=== PATIENT | male | born 1960 | race Caucasian/White ===

== ENCOUNTER 2024-09-08 13:33 | Emergency (ER) | payer OTHER, SELFPAY ==
[2024-09-08 13:35] VITALS: BP 146/81; PULSE 64; RESP 19; TEMP 36.8; O2SAT 99; BMI 23.6
--- NOTE | 2024-09-08 13:49 | XR_ITS ---
Examination: CT abdomen and pelvis without contrast. Coronal 3-D reconstructions. Sagittal 2-D reconstructions. Date and time of exam:September 08, 2024 1449 hours COMPARISON: January 31, 2021 INDICATIONS: Onset severe abdominal pain and diarrhea beginning 4 days ago CTDI: vol (mGy): 6.43 DLP: (mGycm): 368 Technique: Axial images of the abdomen have been obtained, 3 mm slice thickness Intravenous contrast material has not been administered. Low dose protocols were performed. One or more of the following dose reduction techniques were used; automated exposure control, adjustment of the mA and/or KV according to patient size, use of iterative reconstruction technique. Findings: No focal liver or splenic lesions Absent gallbladder No pancreatic or adrenal mass 25 mm left renal cyst No renal or ureteral calculi Aorta normal size No bowel obstruction Normal appendix No diverticulitis A few loops of fluid distended small bowel in the lower abdomen and pelvis Transverse prostate dimension 3.7 cm Urinary bladder intact Advanced disc narrowing L5-S1 IMPRESSION: No renal or ureteral calculi Normal appendix A few loops of fluid distended small bowel in the lower abdomen, differential would include ileus, early small bowel obstruction not excluded, recommend 3 way abdominal series follow-up
--- NOTE | 2024-09-08 13:51 | PD.EDRME ---
Rapid Medical Screening Exam RME Arrival date/time: 09/08/24 13:33 64-year-old male presents emergency department complaints of abdominal pain and diarrhea Chief Complaint: Nausea/Vomiting/Diarrhea Time Seen by Provider: 09/08/24 13:49 Vital signs: Vital Signs Temperature 98.2 F 09/08/24 13:35 Pulse Rate 64 09/08/24 13:35 Respiratory Rate 19 09/08/24 13:35 Blood Pressure 146/81 H 09/08/24 13:35 Pulse Oximetry (%) 99 09/08/24 13:35 Oxygen Delivery Method Room Air 09/08/24 13:35
[2024-09-08 14:06] LABS: Basophils # (Auto) 0.1 Thou/mm3 (0.0-0.2); Basophils % (Auto) 1 % (0-2.5); Eosinophils # (Auto) 0.1 Thou/mm3 (0.0-0.5); Eosinophils % (Auto) 1 % (0-10); Hematocrit 47.7 % (41.0-53.0); Hemoglobin 16.1 g/dL (13.5-16.0); Immature Granulocytes % (Auto) 0 % (0-0); Immature Granulocytes Auto 0.03 Thou/mm3 (0.00-0.00); Lymphocytes # (Auto) 1.6 Thou/mm3 (1.0-4.8); Lymphocytes % (Auto) 18 % (10-50); Mean Corpuscular HGB Conc 33.8 g/dl (31.0-37.0); Mean Corpuscular Volume 89 fL (80-100); Monocytes # (Auto) 0.7 Thou/mm3 (0.0-0.8); Monocytes % (Auto) 8 % (0-12); Neutrophils # (Auto) 6.3 Thou/mm3 (1.8-7.7); Neutrophils % (Auto) 72 % (37-80); Nucleated Red Blood Cell % 0 /100 WBC (0); Platelet Count 206 Thou/mm3 (140-440); RDW Standard Deviation 43.4 fL (35.1-43.9); Red Blood Count 5.37 Miln/mm3 (4.50-5.90); White Blood Count 8.8 Thou/mm3 (3.8-10.6)
[2024-09-08 14:22] LABS: Collection Type, Urine Clean Catch
[2024-09-08 14:30] LABS: Alanine Aminotransferase 13 U/L (10-49); Albumin, Serum 4.8 gm/dL (3.4-4.8); Alkaline Phosphatase 85 U/L (46-116); Anion Gap 7 (7-16); Aspartate Amino Transferase 10 U/L (0-34); BUN/Creatinine Ratio 15 Ratio (12-20); Bilirubin,Total 0.7 mg/dL (0.3-1.2); Blood Urea Nitrogen 16 mg/dL (9-23); Calcium 9.8 mg/dL (8.3-10.6); Calcium (Corrected) 9.8 mg/dL (8.5-10.1); Carbon Dioxide 23.5 mMol/L (20.0-31.0); Chloride 107 mMol/L (98-107); Creatinine (Component) 1.1 mg/dL (0.6-1.3); Globulin 2.4 gm/dL (2.3-3.5); Glucose 113 mg/dL (74-106); Lipase 29 U/L (12-53); Osmolality,Calculated 276 (275-295); Potassium 3.9 mMol/L (3.4-5.1); Sodium 137 mMol/L (136-145); Total Protein 7.2 gm/dL (5.7-8.2); eGFR > 60 See Note
[2024-09-08 14:43] LABS: Bacteria,Urine Rare; Bilirubin,Urine Negative (Negative); Blood,Urine 1+ (Negative); Clarity,Urine Clear (Clear/Hazy); Color,Urine Yellow (Lt Yel-Yel); Culture Indicated,Urine Not Indicated; Glucose, Urine Negative (Negative); Hyaline Casts,Urine < 1 /hpf (0-1); Ketones,Urine Negative (Negative); Leukocyte Esterase,Urine Negative (Negative); Nitrite,Urine Negative (Negative); PH,Urine 5.5 (5.0-7.0); Protein,Urine 1+ (Neg - Trace); RBC,Urine 1 /hpf (0-3); Specific Gravity,Urine 1.033 (1.001-1.035); Squamous Epithelial Cell,Urine < 1 /hpf (0-5); Urobilinogen,Urine Negative mg/dL (0.0-1.0); WBC,Urine 1 /hpf (0-5)
[2024-09-08 15:23] LABS: Magnesium 2.1 mg/dL (1.6-2.6)
--- NOTE | 2024-09-08 16:08 | PD.EDNV ---
Nausea/Vomit./Diarrhea-RME/HPI General Chief complaint: Nausea/Vomiting/Diarrhea Stated complaint: Diarrhea Time Seen by Provider: 09/08/24 13:49 Source: patient Arrival date/time: 09/08/24 13:33 This is a 64-year-old male who presented to the emergency department with complaints of generalized abdominal pain associated with mild nausea and vomiting x 1 day. He does report that yesterday for lunch she had a shrimp burrito and reports that his symptoms started since then. Reports he also started with diarrhea today prompting his ED visit today. Mode of arrival: ambulatory RME / HPI RME / HPI Narrative: 09/08/24 13:33 64-year-old male presents emergency department complaints of abdominal pain and diarrhea Related Data Home Medications ?Medication ?Instructions ?Recorded ?Confirmed atorvastatin 40 mg tablet 40 mg PO QDAY 04/08/23 04/08/23 trazodone 100 mg tablet 100 mg PO QPM 04/08/23 04/08/23 Previous Rx's ?Medication ?Instructions ?Recorded dicyclomine 10 mg capsule 10 mg PO QID PRN abdominal pain 09/08/24 #14 caps Allergies Allergy/AdvReac Type Severity Reaction Status Date / Time meperidine Allergy Unknown Nausea Verified 04/09/23 15:19 Review of Systems Review of Systems Systems Reviewed: All systems reviewed, normal except as documented Narrative Review of Systems: Gen: No fever, no chills, no weight loss EYES: No discharge, no visual changes, no pain HEENT: No ear pain, no congestion, no sore throat PULM: No shortness of breath, no cough, no congestion CV: No chest pain, no dyspnea on exertion, no palpitations GI: No nausea, + vomiting, + diarrhea, + pain, no constipation : No frequency, no urgency,? no dysuria Musc/skel: No joint pain, no back pain Skin: No rash? Psyc: No hallucinations, no depression Heme/Lymph: No easy bleeding or bruising tendencies Neuro: No weakness, no headache ED Exam Narrative Physical exam: General: Sittiing in Exam table in no acute distress, answering questions appropriately HENT: normocephalic, atraumatic, EOMI, PERRLA, moist mucous membranes Chest: chest wall is nontender Cardiac: regular rate and rhythm, normal S1 and S2, no murmurs, rubs, or gallops, capillary refill ?2 seconds Pulmonary: clear to auscultation bilaterally, no wheezing, crackles, or rhonchi Abdominal: active bowel sounds, soft, nontender, nondistended Neuro: A&OX3, CN II-XII intact, sensation grossly intact bilaterally in UE and LE. Skin: no rashes, no ecchymosis Ext: no lower extremity edema Course Quality Measures none Orders Category Date Time Status CT abdomen pelvis wo con Stat Exams 09/08/24 13:49 Completed CBC Stat Lab 09/08/24 13:54 Completed Comprehensive Metabolic Panel Stat Lab 09/08/24 13:54 Completed Lipase Stat Lab 09/08/24 13:54 Completed Magnesium Stat Lab 09/08/24 13:54 Completed UA, C/S IF [Urinalysis, C/S if Indicated] Stat Lab 09/08/24 14:15 Completed Vital Signs Vital signs: Vital Signs Temperature 98.2 F 09/08/24 13:35 Pulse Rate 64 09/08/24 13:35 Respiratory Rate 19 09/08/24 13:35 Blood Pressure 146/81 H 09/08/24 13:35 Pulse Oximetry (%) 99 09/08/24 13:35 Oxygen Delivery Method Room Air 09/08/24 13:35 Nausea/Vomiting/Diarrhea MDM Narrative MDM Narrative:: Most likely a gastroenteritis. Patient's vital signs stable. patient symptoms much improved patient's labs reassuring. patient will be discharged home with antibiotic course close follow-up with his PCP return to the emergency department this any worsening symptoms change in condition. Patient data External records reviewed:: [facility] previous records Clinical information provided by:: patient Social determinants that could affect healthcare access:: none Patient has the following chronic illnesses:: none How is presenting disease/condition affected by chronic disease/condition?: no chronic disease Evaluation data The following diagnostics were reviewed and interpreted by me:: radiology exam(s) Lab and/or radiology exams considered but not ordered:: none Interpretation Summary: Examination: CT abdomen and pelvis without contrast. Coronal 3-D reconstructions. Sagittal 2-D reconstructions. Date and time of exam:September 08, 2024 1449 hours COMPARISON: January 31, 2021 INDICATIONS: Onset severe abdominal pain and diarrhea beginning 4 days ago CTDI: vol (mGy): 6.43 DLP: (mGycm): 368 Technique: Axial images of the abdomen have been obtained, 3 mm slice thickness Intravenous contrast material has not been administered. Low dose protocols were performed. One or more of the following dose reduction techniques were used; automated exposure control, adjustment of the mA and/or KV according to patient size, use of iterative reconstruction technique. Findings: No focal liver or splenic lesions Absent gallbladder No pancreatic or adrenal mass 25 mm left renal cyst No renal or ureteral calculi Aorta normal size No bowel obstruction Normal appendix No diverticulitis A few loops of fluid distended small bowel in the lower abdomen and pelvis Transverse prostate dimension 3.7 cm Urinary bladder intact Advanced disc narrowing L5-S1 IMPRESSION: No renal or ureteral calculi Normal appendix A few loops of fluid distended small bowel in the lower abdomen, differential would include ileus, early small bowel obstruction not excluded, recommend 3 way abdominal series follow-up Medications / Prescriptions Medications / Prescriptions considered but not ordered:: yes abx Medication administrations:: no Consultations Consultation(s) initiated? (list below): No Diagnosis Nausea Differential Diagnosis: traveler's diarrhea, food poisoning, gastroenteritis, clostridium difficile infection, drug-induced nausea and vomiting and dehydration Most likely diagnosis given after review of the tests above:: Gastroenteritis Admission Indicated Admission indicated?: not indicated Explain why admission is indicated or not indicated:: none Admission Request Was there a request for admission?: No Disposition Plan Disposition Plan: Discharge Discharge Attestation Discharge Attestation: The patient and all family members were given an opportunity to ask questions and understood the discharge instructions. Discharge instructions specifically effects, indications for sooner follow up or return to the emergency department, and the expected course of current diagnosis. Patient condition: Stable Discharge Plan Plan Patient Disposition: HOME (Self Care) Patient condition on transfer: Stable Prescriptions/Referrals Prescriptions/Med Rec: New dicyclomine 10 mg capsule 10 mg PO QID PRN (Reason: abdominal pain) Qty: 14 0RF No Action atorvastatin 40 mg tablet 40 mg PO QDAY Patient Comments: TAKE 1 TABLET BY MOUTH EVERY DAY trazodone 100 mg tablet 100 mg PO QPM Hold Instructions: Resume on 04/10/23. Patient Comments: TAKE ONE TABLET BY MOUTH AT BEDTIME ONCE A DAY Referrals: No Primary/Family,Physician [Primary Care Provider] - In 1 week Problem List Clinical Impression: Gastroenteritis Patient/Caregiver Discharge Instructions Discharge Activity: activity as tolerated Education Materials: Anatomy of the Digestive System Additional Instructions: - Please start antibiotics and medication as directed. -Can use [id number] antidiarrheal if needed. -Please follow-up with your primary doctor clinic in 2 to 3 days for follow-up care. -If there is any worsening symptoms or change in condition or you develop nausea or vomiting or fever please return to the emergency department for further evaluation. Print Language: Kyrgyz Stand Alone Forms: Pari Award Info., Patient Portal Info Letter AUBREY/JAYLEN Supervising Physician AUBREY/JAYLEN Supervising Physician: Dr. Arrieta
== END 2024-09-08 16:39 | disposition home or self-care (01) ==
PROVIDERS: Nurse Practitioner Primary Care; Emergency Provider Internal Medicine Rheumatology
DX: K52.9 Noninfective gastroenteritis and colitis, unspecified (principal)
CPT/HCPCS: 36415; 74176; 80053; 81001; 83690; 83735; 85025; 99284

== ENCOUNTER → 2024-12-17 | Outpatient (CLI) | payer MEDICARE, SELFPAY ==
[2024-12-17 09:31] LABS: Basophils # (Auto) 0.1 Thou/mm3 (0.0-0.2); Basophils % (Auto) 1 % (0-2.5); Eosinophils # (Auto) 0.2 Thou/mm3 (0.0-0.5); Eosinophils % (Auto) 3 % (0-10); Hematocrit 45.7 % (41.0-53.0); Hemoglobin 15.2 g/dL (13.5-16.0); Immature Granulocytes % (Auto) 0 % (0-0); Immature Granulocytes Auto 0.03 Thou/mm3 (0.00-0.00); Lymphocytes # (Auto) 1.7 Thou/mm3 (1.0-4.8); Lymphocytes % (Auto) 25 % (10-50); Mean Corpuscular HGB Conc 33.3 g/dl (31.0-37.0); Mean Corpuscular Volume 90 fL (80-100); Monocytes # (Auto) 0.7 Thou/mm3 (0.0-0.8); Monocytes % (Auto) 10 % (0-12); Neutrophils # (Auto) 4.2 Thou/mm3 (1.8-7.7); Neutrophils % (Auto) 61 % (37-80); Nucleated Red Blood Cell % 0 /100 WBC (0); Platelet Count 160 Thou/mm3 (140-440); RDW Standard Deviation 45.7 fL (35.1-43.9); Red Blood Count 5.06 Miln/mm3 (4.50-5.90); White Blood Count 6.8 Thou/mm3 (3.8-10.6)
[2024-12-17 09:43] LABS: Glucose Estimated Average 108 mg/dL (80-131); Hemoglobin A1C 5.4 % Hgb (4.8-6.0)
[2024-12-17 09:46] LABS: Prostate Specific Antigen 0.57 ng/mL (0-4.00)
[2024-12-17 09:52] LABS: Alanine Aminotransferase 13 U/L (10-49); Albumin/Globulin Ratio 1.8 (1.2-2.2); Alkaline Phosphatase 65 U/L (46-116); Anion Gap 5 (7-16); Aspartate Amino Transferase 17 U/L (0-34); BUN/Creatinine Ratio 19 Ratio (12-20); Bilirubin,Total 0.3 mg/dL (0.3-1.2); Blood Urea Nitrogen 19 mg/dL (9-23); Carbon Dioxide 25.1 mMol/L (20.0-31.0); Chloride 109 mMol/L (98-107); Cholesterol 225 mg/dL (132-200); Globulin 2.2 gm/dL (2.3-3.5); Glucose 97 mg/dL (74-106); HDL Cholesterol 45 mg/dL (40-60); LDL Cholesterol,Calculated 162 mg/dL (0-130); Osmolality,Calculated 279 (275-295); Potassium 4.8 mMol/L (3.4-5.1); Sodium 139 mMol/L (136-145); Thyroid Stimulating Hormone 1.46 uIU/mL (0.55-4.78); Total Protein 6.2 gm/dL (5.7-8.2); Triglycerides 88 mg/dL (30-150); eGFR > 60 See Note
== END | disposition home or self-care (01) ==
LOC: COPL 08:05
PROVIDERS: PCP Nurse Practitioner Family; Referring Provider Nurse Practitioner Family; Visit Provider Nurse Practitioner Family
DX: Z00.00 Encounter for general adult medical examination without abnormal findings (principal)
CPT/HCPCS: 36415; 80053; 80061; 81001; 83036; 84153; 84443; 85025

== ENCOUNTER → 2025-08-01 | Outpatient (CLI) | payer MEDICARE, MEDICAID, SELFPAY ==
--- NOTE | 2025-08-01 | XR_ITS ---
Examination: Left hip AP, lateral, AP pelvis 3 views Technique: Hip AP lateral, AP pelvis, 3 views Exam date and time: August 01, 2025, 0917 hours INDICATIONS: Left hip pain beginning 2 months ago, history fall on the left hip 1 month ago FINDINGS: Moderate osteopenia. Mild bilateral hip osteoarthritis No left hip fracture or dislocation Right hip bones of the pelvis intact IMPRESSION: Mild bilateral hip osteoarthritis.
== END | disposition home or self-care (01) ==
LOC: CDIM 07:50
PROVIDERS: PCP Family Medicine; Referring Provider Nurse Practitioner Family; Visit Provider Nurse Practitioner Family
DX: S70.02XA Contusion of left hip, initial encounter (principal); W19.XXXA Unspecified fall, initial encounter; M16.0 Bilateral primary osteoarthritis of hip
CPT/HCPCS: 73502